=== PATIENT | male | born 1950 | race Caucasian/White ===

== ENCOUNTER → 2018-12-27 | Outpatient (CLI) | payer OTHER | LOC: MRI 07:17 | DX: I63.9 Cerebral infarction, unspecified (principal); J34.1 Cyst and mucocele of nose and nasal sinus; Z88.0 Allergy status to penicillin ==

== ENCOUNTER → 2019-01-16 | Outpatient (CLI) | payer OTHER ==
[~2019-01-16] VITALS: Ht 170.2 cm; Wt 72.6 kg
[~2019-01-16] MED LIST: ASPIRIN325 PO; CRESTOR10 MG PO; ELIQUIS5 MG PO; METOPROLOL TART25 MG PO; OMEPRAZOLE40 MG PO; SYNTHROID25 MC1 PO
--- NOTE | 2019-01-17 14:06 | PATH ---
[facility] [place] [address] PATHOLOGY RPT PROCEDURE Name: ALPHONSE CRANE Room #: REG CLI M.R.#: [id number] Admission: 01/16/19 Date of : 50 Discharge: Report #: [id number] Path Case #: [id number] [facility] Accession Number: [id number] . 01 Material submitted: . PART A: stomach - GASTRIC POLYPS (MULTIPLE X7) PART B: stomach - RANDOM GASTRIC BIOPSY R/O H PYLORI PART C: esophagus - RANDOM ESOPHAGEAL BIOPSY R/O EOE . 01 Clinical history: . Pre-OP DX: Dysphagia, Hx polyps Post-OP DX: Gastric polyps, gastritis, dysphagia, hemorrhoids . 02 Diagnosis: A. Stomach, "gastric polyps", biopsy: - Fundic gland polyps, multiple. . B. Stomach, random biopsies: - Chronic superficial gastritis, mild. - Increased eosinophils present in lamina propria. (Please see comment) - No evidence of Helicobacter pylori on immunoperoxidase stain. . C. Esophagus, random biopsies: - Hyperplastic squamous epithelium with rare intraepithelial eosinophils. . (SKM:chente; 01/17/2019) QLM/01/17/2019 . 02 Comment: The random stomach biopsies (B) focally contain more than 15 eosinophils / high power field. 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 . Note that no evidence of eosinophilic esophagitis is seen in the esophageal biopsy (C). . (SKM:chente; 01/17/2019) . 02 Electronically signed: . Carmelo Cunningham MD, Pathologist NPI- [id number] . 01 Gross description: . A. Received in formalin labeled "Alphonse Crane, gastric polyps x7," are multiple segments of mcmanus soft tissue measuring 2.1 x 0.9 x 0.3 cm in aggregate dimensions. The specimen is filtered and entirely submitted in cassette A1. [address] [address] PATHOLOGY RPT PROCEDURE Name: ALPHONSE CRANE R Room #: REG CLI [facility].#: [id number] Admission: 01/16/19 Date of : 50 Discharge: Report #: [id number] Path Case #: [id number] . B. Received in formalin labeled "Alphonse Crane, random gastric BX, rule out H. pylori," are 5 segments of mcmanus soft tissue measuring 1.1 x 0.9 x 0.3 cm in aggregate dimensions and ranging from 0.1 to 0.6 cm in maximum dimension. The specimen is submitted entirely in cassette B1. . C. Received in formalin labeled "Colwalteruono, Alphonse, random esophageal BX, rule out EOE," are 6 segments of mcmanus soft tissue measuring 1.1 x 0.8 x 0.2 cm in aggregate dimensions and ranging from 0.2 to 0.4 cm in maximum dimension. The specimen is submitted entirely in cassette C1. (TSD; 01/16/2019) TOB/TOB . 02 Pathologist provided ICD-10: K31.7, K29.30, K22.9, R13.10 . 02 CPT . 529702, [id number], 221128 Specimen Comment: A courtesy copy of this report has been sent to Specimen Comment: [phone], . Specimen Comment: Report sent to / DR PAULINO Performed at: [address], [place], [place] [id number] MD Taiwo Jesus MD Phone: [phone] Performed at: [address] [id number] MD Rowena Valente MD Phone: [phone]
== END | disposition home or self-care (01) ==
LOC: GI 10:42
DX: Z12.11 Encounter for screening for malignant neoplasm of colon (principal); K31.7 Polyp of stomach and duodenum; K29.30 Chronic superficial gastritis without bleeding; K22.9 Disease of esophagus, unspecified; R13.19 Other dysphagia; K64.8 Other hemorrhoids; I10 Essential (primary) hypertension; E78.00 Pure hypercholesterolemia, unspecified; K21.9 Gastro-esophageal reflux disease without esophagitis; E03.9 Hypothyroidism, unspecified; I48.91 Unspecified atrial fibrillation; Z85.828 Personal history of other malignant neoplasm of skin; Z86.73 Personal history of transient ischemic attack (TIA), and cerebral infarction without residual deficits; Z86.010 Personal history of colon polyps; Z79.01 Long term (current) use of anticoagulants; Z98.890 Other specified postprocedural states; Z79.899 Other long term (current) drug therapy; Z88.0 Allergy status to penicillin
CPT/HCPCS: 43251; 43248; 43239; G0121; 62110; 62900